=== PATIENT | male | born 1980 | race Caucasian/White ===

== ENCOUNTER 2019-02-18 22:03 | Emergency (ER) | payer OTHER ==
[2019-02-18] MEDS ORDERED: ONDANSETRON 4 MG/2 ML VIAL ONE (22:18)
[2019-02-18] MEDS ORDERED: NS 1,000 ML IV ONE (22:21)
[2019-02-18] MEDS ORDERED: ONDANSETRON 4 MG/2 ML VIAL IVP ONE (22:21)
--- NOTE | 2019-02-18 22:28 | EDPHY ---
H & P Stated Complaint: felt dizzy and tripped and fell on stair, lac above nose and back of head. - Personal History Current Tetanus Diphtheria and Acellular Pertussis (TDAP): Yes Tetanus Vaccine Date: 2011 - Medical/Surgical History Hx Asthma: No Hx Chronic Respiratory Disease: No Hx Diabetes: No Hx Cardiac Disease: No Hx Renal Disease: No Hx Cirrhosis: No Hx Alcoholism: No Hx HIV/AIDS: No Hx Splenectomy or Spleen Trauma: No Other PMH: psh- L thumb surgery - Social History Smoking Status: Former smoker Time Seen by Provider: 02/18/19 22:10 HPI/ROS: Chief Complaint: Fall, syncope, head injury HPI: 38-year-old male arrived home from being out this evening. While walking to his house he felt lightheaded. Patient believes he may have passed out, falling forward and striking his forehead on the concrete. Patient states that while he is walking to his car he was feeling lightheaded but decided to continue into the house. After following he regained consciousness. Patient stood up to go back into the house again once again became lightheaded and fell backwards striking the back of his head. Does not believe he lost consciousness 2nd time. Complaining of some mild headache. Is complaining of nausea. States that he had 2-3 beers tonight. Does use occasional marijuana. No nausea or vomiting. No neck pain. No numbness or weakness. Denies other injuries. ROS: 10 systems were reviewed and were negative except those elements noted in the HPI. PMH: Denies Social History: No smoking, occasional alcohol, occasional marijuana Family History: No family history of sudden cardiac or arrhythmia Physical Exam: Gen: Awake, Alert, Airway Intact HEENT: Head: Patient has a large stellate laceration on his forehead, linear laceration on his occiput foot. No bony tenderness or crepitus. Eyes: PERRLA, EOMI Nose: No epistaxis Mouth: Normal dentition, Airway patent Face: No deformity, abrasion on his chin Neck: non-tender, no stepoff, Full ROM without pain Chest: non-tender, lungs CTA Heart: normal heart tones Abd: soft, non-tender, atraumatic Pelvis: non-tender, stable to AP and Lateral compression Back: atraumatic, no midline tenderness Ext: atramatic, full ROM Skin: no rash Neuro: CN II-XII intact, Strength 5/5 in all extremities, sensation intact in all extremities (Dell Faustin) Constitutional: Initial Vital Signs Temperature (C) 36.6 C 02/18/19 22:05 Heart Rate 76 02/18/19 22:05 Respiratory Rate 16 02/18/19 22:05 Blood Pressure 125/55 H 02/18/19 22:05 O2 Sat (%) 99 02/18/19 22:05 O2 Delivery Mode Room Air Allergies/Adverse Reactions: No Known Allergies Allergy (Verified 02/18/19 22:04) Home Medications: Medication Instructions Recorded No Medications [NO HOME 1 ea [facility]] Medical Decision Making - Diagnostics Imaging: Discussed imaging studies w/ call center dispatcher Radiologist - Diagnostics EKG Interpretation: ECG time 10:20 p.m., sinus rhythm with a rate of 74, normal axis, normal intervals, no acute ST or T-wave changes. Impression: Normal ECG. (Dell Faustin) Imaging Results: Imaging Impressions Head CT 02/18/19 22:24 Impression: No evidence for acute intracranial abnormality or skull fracture. Minimal chronic sinus related change. Results called and discussed with Dell Faustin MD at 02/18/2019 22:52. Procedures: Laceration Repair Verbal consent obtained by patient. Risks discussed, including but not limited to infection, pain, retained foreign body, need for additional repair, poor cosmetic result, tendon damage, nerve damage, poor wound healing, vascular damage. Alternatives to repair discussed. Dawson protocol used to establish correct patient, procedure, equipment, family support worker, and site. Anesthesia obtained by local infiltration. Anesthetized with 1% lidocaine with epinephrine. Patient was prepped and draped in usual sterile fashion. Hemostasis achieved with direct pressure. Wound explored through full range of motion and entire depth of wound probed and visualized with gloved finger. No suspicion for nerve damage, tendon damage, underlying fracture, vascular damage, foreign body, or contamination. Area was cleansed with Shur-Clens and irrigated with sterile saline as per protocol. No foreign body or material removed. Their 2 separate lacerations. Laceration on the mid forehead just superior to the nasal bridge is 3.5 cm full-thickness, overlying abrasion. Repair type is complex. The deep layer was closed with 5.0 PDS, 4 interrupted sutures. The superficial layer was closed with 6.0 Prolene, total 8 simple interrupted sutures were placed. The 2nd laceration is 2 cm located in the right occiput. This laceration was closed with patricia, a total of 6 with good approximation. Both lacerations Well aligned, closely approximated. wound was dressed with antibiotic ointment. Patient tolerated well with no immediate complications. Wound care: Clean and dry x 24 hours, gently clean with soap and water, cover with topical antibiotic ointment/bandage. Suture/Staple removal: Suture removal in 5 days, staple remover and 7 days (Rocio Ramirez) ED Course/Re-evaluation: CT scans are negative. Lacerations been repaired. ECG is normal. Patient admits to using marijuana just prior to getting out of his car. I think this is a contributing factor. No evidence of arrhythmia. He has been ambulating unassisted in the emergency department will discharge with outpatient follow- up. He has been cautioned to be cautious when using cannabis. (Dell Faustin) - Data Points Laboratory Results: Laboratory Results 02/18/19 22:21 02/18/19 22:21 Sodium 139 mEq/L mEq/L (135-145) Potassium 3.1 mEq/L L mEq/L (3.5-5.2) Chloride 105 mEq/L mEq/L (97-110) Carbon Dioxide 22 mEq/l mEq/l (22-31) Anion Gap 12 mEq/L mEq/L (6-14) BUN 15 mg/dL mg/dL (7-23) Creatinine 1.2 mg/dL mg/dL (0.7-1.3) Estimated GFR > 60 Glucose 80 mg/dL mg/dL (70-100) Calcium 9.8 mg/dL mg/dL (8.5-10.4) Total Bilirubin 0.5 mg/dL mg/dL (0.1-1.4) AST 49 IU/L IU/L (17-59) ALT 40 IU/L IU/L (21-72) Alkaline Phosphatase 50 IU/L IU/L (38-126) Total Protein 7.8 g/dL g/dL (6.3-8.2) Albumin 4.7 g/dL g/dL (3.5-5.0) Ethyl Alcohol 25 mg/dL H mg/dL (0-10) Medications Given: Discontinued Medications Sodium Chloride (Ns) 1,000 mls @ 0 mls/hr IV ONCE ONE; Wide Open PRN Reason: Protocol Stop: 02/18/19 22:22 Last Admin: 02/18/19 22:23 Dose: 1,000 mls Ondansetron HCl (Zofran) 4 mg IVP EDNOW ONE Stop: 02/18/19 22:22 Last Admin: 02/18/19 22:23 Dose: 4 mg Departure - Departure Disposition: Home, Routine, Self-Care Clinical Impression: Face lacerations, Scalp laceration, Syncope Condition: Good Instructions: Care For Your Stitches (ED), Laceration (ED), Syncope (ED), Concussion (ED), Staple Care (ED) Additional Instructions: Forehead sutures need to be removed in 5 days. You may return to the emergency department we will remove them for you. Scalp patricia need to be removed in 10 days. You may return to the emergency department we remove them for you. Follow up with primary care physician in 3-4 days for further evaluation. Be cautious when using cannabis. Make sure you drink plenty of fluids. Return to the emergency department for further fainting, chest pain, shortness of breath, heart racing, discharge from her wounds, increasing redness, fevers, or any other concerns. Referrals: Vi Moreno MD [Medical Doctor] - As per Instructions Aylin Hightower MD [Medical Doctor] - As per Instructions
--- NOTE | 2019-02-18 22:35 | CPEKG ---
Test Reason : OPEN Blood Pressure : / mmHG Vent. Rate : 074 BPM Atrial Rate : 073 BPM P-R Int : 127 ms QRS Dur : 110 ms QT Int : 403 ms P-R-T Axes : 052 067 062 degrees QTc Int : 448 ms Sinus rhythm Confirmed by Dell Faustin ([id number]) on 02/18/2019 10:34:55 PM Referred By: Dell Faustin Confirmed By:Dell Faustin
[2019-02-27 11:42] VITALS: BP 118/68
== END 2019-02-19 00:57 | disposition home or self-care (01) ==
PROC: 0HQ0XZZ Repair Scalp Skin, External Approach (ICD-10-PCS; principal; 2019-02-18)
PROC: 0HQ1XZZ Repair Face Skin, External Approach (ICD-10-PCS; principal; 2019-02-18)
DX: R55 Syncope and collapse (principal); S01.01XA Laceration without foreign body of scalp, initial encounter; S01.81XA Laceration without foreign body of other part of head, initial encounter; E86.9 Volume depletion, unspecified; W10.8XXA Fall (on) (from) other stairs and steps, initial encounter; Y93.01 Activity, walking, marching and hiking; Y92.480 Sidewalk as the place of occurrence of the external cause
CPT/HCPCS: 96374; G0480; J2405